=== PATIENT | female | born 1940 | race Caucasian/White ===

== ENCOUNTER 2022-05-30 20:11 | Inpatient (IN) | payer MEDICARE, SELFPAY ==
--- NOTE | ~2022-05-30 | XR_ITS ---
EXAMINATION: XR chest 1V portable Exam Date/Time: 05/30/2022 20:25 FUR PULLER HISTORY: chest pain, STEMI Comparison: None available. RESULT: Lines, tubes, and devices: None. Lungs and pleura: Diffuse reticular opacities, no focal consolidation. Scar/atelectasis in the left midlung. Cardiomediastinal silhouette: Stable. Other: No acute osseous or upper abdominal finding. IMPRESSION: Interstitial edema. Reviewed, dictated and finalized at location K. PULLER IMPRESSION: Interstitial edema.
--- NOTE | ~2022-05-30 | XR_ITS ---
Portable chest x-ray Comparison: 05/30/2022 Clinical History: CHF Findings: Probable mild central congestive change and minimal interstitial edema present. Cardiomed iastinal silhouette is stable. Bones and soft tissues are unremarkable. Impression: Probable mild central congestive change and minimal interstitial edema. Correlate for any possibility of chronic interstitial disease. Reviewed, dictated and finalized at [facility]. ARE MANAGER Impression: Probable mild central congestive change and minimal interstitial edema. Correla te for any possibility of chronic interstitial disease.
--- NOTE | 2022-05-30 20:11 | ECG_ITS ---
Measurements Intervals [place] Rate: 101 P: 74 VA: 197 QRS: 28 QRSD: 82 T: 63 QT: 339 QTc: 441 Interpretive Statements SINUS TACHYCARDIA POSSIBLE LEFT ATRIAL ENLARGEMENT LOW QRS VOLTAGE IN PRECORDIAL LEADS ANTEROLATERAL ST ELEVATION MYOCARDIAL INFARCT- ACUTE HIGH LATERAL ST ELEVATION MYOCARDIAL INFARCT- ACUTE BASELINE ARTIFACT- I, AVR, AVL, V1, V6 ABNORMAL ECG NO PREVIOUS ECG AVAILABLE FOR COMPARISON Electronically Signed On 05-31-2022 6:45:05 ASSURANCE AUDITOR by Zhao Denis D.O.
[2022-05-30 20:14] VITALS: BP 156/76; PULSE 99; RESP 18; TEMP 36.1; O2SAT 99
[2022-05-30] MEDS: ASPIRIN 81 MG CHEWABLE TABLET 324 MG PO (20:23)
[2022-05-30] MEDS: TICAGRELOR 90 MG TABLET 180 MG PO (20:31)
[2022-05-30 20:34] LABS: Basophils Percent Auto 0.5 % (0.2-1.2); Eosinophils Absolute Auto 0.1 K/mm3 (0-0.3); Eosinophils Percent Auto 1.2 % (0-4.4); Hematocrit 34.9 % (37.0-47.0); Hemoglobin 9.7 g/dL (12.0-15.0); Immature Granulocyte Absolute 0.02 K/mm3 (0.00-0.031); Immature Granulocyte Percent A 0.3 % (0-0.5); Lymphocytes Absolute Auto 1.48 K/mm3 (0.9-3.2); Lymphocytes Percent Auto 20.3 % (18.3-44.2); Mean Corpuscular HGB Conc 27.8 g/dl (32-36); Mean Corpuscular Hemoglobin 17.5 pg (26-34); Mean Corpuscular Volume 62.9 fl (80-100); Mean Platelet Volume 8.6 fl (7.4-10.4); Monocytes Absolute Auto 0.5 K/mm3 (0.1-0.6); Monocytes Percent Auto 7.4 % (2.6-8.5); Neutrophils Absolute Auto 5.1 K/mm3 (1.3-6.7); Neutrophils Percent Auto 70.3 % (45.5-73.1); Platelet Count Result 303 k/mm3 (150-375); Red Blood Count 5.55 M/mm3 (4.2-5.4); Red Cell Distribution Width 21.4 % (11.5-14.5); White Blood Count 7.3 K/mm3 (4.5-10.0)
[2022-05-30] MEDS: ONDANSETRON INJ 4 MG/2 ML VIAL IV PUSH (20:34)
--- NOTE | 2022-05-30 20:34 | ED.GENADULT ---
HPI - General Adult General Chief complaint: Chest Pain Stated complaint: chest pain Time Seen by Provider: 05/30/22 20:20 History of Present Illness HPI narrative: 82-year-old female history of COPD and coronary artery disease presenting the emergency department for evaluation of intense substernal chest pain has been ongoing for the last 1.5 hours. Patient states that she did have a cardiac cath approximately 4 years ago at a hospital in [place]. Patient is unsure of what hospital this was at. Patient reports she is not on any blood thinners. Patient is a somewhat difficult historian. Patient does describe a possible history of peripheral vascular disease and having multiple damaged arteries after her radiation therapy from her lung cancer. Patient reports that a prior physician was going to do a bypass on her groin but they were concerned she would not tolerate the anesthesia and ultimately this was not done. Patient also states that she has some blood vessels in her chest that are blocked but she is unsure of what vessels these are or if they were coronary arteries. Patient does have history of diabetes, hypertension, hypothyroid Related Data Allergies Allergy/AdvReac Type Severity Reaction Status Date / Time No Known Allergies Allergy Verified 05/30/22 20:13 Review of Systems Review of Systems: CONSTITUTIONAL: Denies fever, chills, or sweats. EYES: Denies visual changes, redness, or discharge. ENT: Denies rhinorrhea, congestion, sore throat, or otalgia. CARDIOVASCULAR: See HPI RESPIRATORY: Denies cough or dyspnea. GASTROINTESTINAL: Denies abdominal pain, nausea, vomiting, or diarrhea. GENITOURINARY: Denies dysuria or hematuria. SKIN: Denies rash or itching. MUSCULOSKELETAL: Denies back pain, joint pain, or myalgia. NEUROLOGIC: Denies headache, numbness, or weakness. Exam Narrative: APPEARANCE: Ill-appearing HEAD: normocephalic, atraumatic. EYES: PERRLA/EOMI, conjunctivae clear. NOSE: Normal no drainage NECK: Supple. No adenopathy, no masses. RESPIRATORY: Airway patent, respirations nonlabored. Clear to auscultation bilaterally, no rales, rhonchi, wheezing. CARDIOVASCULAR: Tachycardia ABDOMINAL: Soft, nontender, nondistended, normal bowel sounds MUSCULOSKELETAL: Moves all extremities. Strength/ROM intact, No edema, No calf tenderness. NEURO: Alert. Cranial nerves II through XII intact. Grossly intact SKIN: Warm, dry. Normal Color Course Course Emergency Course: Patient's EKG was concerning for STEMI. Shortly after arrival to the emergency department cardiology was paged and they agreed with this being a STEMI. Patient was given aspirin, Brilinta, heparin and metoprolol. Patient was also provided morphine for pain control. Patient denies any prior history of CABG. Patient states on her last catheter that they had possible difficulty with the cath. But patient was unable to provide any other additional information. Vital Signs Vital signs: Vital Signs Temperature 96.9 F L 05/30/22 20:14 Pulse Rate 99 05/30/22 20:14 Respiratory Rate 18 05/30/22 20:14 Blood Pressure 156/76 H 05/30/22 20:14 Pulse Oximetry 99 05/30/22 20:14 Oxygen Delivery Room Air 05/30/22 20:14 Temperature 96.9 F L 05/30/22 20:14 Pulse Rate 104 H 05/30/22 20:44 Respiratory Rate 22 H 05/30/22 20:37 Blood Pressure 150/77 H 05/30/22 20:37 Pulse Oximetry 99 05/30/22 20:37 Oxygen Delivery Room Air 05/30/22 20:40 Medical Decision Making Vital Signs Vital Signs: Vital Signs Temperature 96.9 F L 05/30/22 20:14 Pulse Rate 99 05/30/22 20:14 Respiratory Rate 18 05/30/22 20:14 Blood Pressure 156/76 H 05/30/22 20:14 Pulse Oximetry 99 05/30/22 20:14 Oxygen Delivery Room Air 05/30/22 20:14 Temperature 96.9 F L 05/30/22 20:14 Pulse Rate 104 H 05/30/22 20:44 Respiratory Rate 22 H 05/30/22 20:37 Blood Pressure 150/77 H 05/30/22 20:37 Pulse Oximetry 99 05/30/22 20:37 Oxygen
[2022-05-30 20:37] VITALS: BP 150/77; PULSE 99; RESP 22; O2SAT 99
[2022-05-30 20:40] VITALS: PULSE 101
[2022-05-30] MEDS: SODIUM CHLORIDE 0.9% IV 1,000 ML 999 ML (20:42)
[2022-05-30] MEDS: HEPARIN SODIUM 5,000 UNITS/ML VIAL 3500 UNITS IV PUSH (20:42)
[2022-05-30 20:44] VITALS: PULSE 104
[2022-05-30] MEDS: METOPROLOL TARTRATE INJ 5 MG/5 ML VIAL IV PUSH (20:44)
[2022-05-30 20:45] LABS: Alanine Aminotransferase 16 U/L (6-35); Albumin Level 4.8 g/dL (3.5-5.1); Alkaline Phosphatase 96 U/L (38-126); Anion Gap 13 mmol/L (8-16); Aspartate Amino Transferase 27 U/L (14-36); Bilirubin,Total 0.3 mg/dL (0.2-1.3); Blood Urea Nitrogen 12 mg/dL (7-17); Carbon Dioxide 23 mmol/L (22-30); Chloride 96 mmol/L (98-107); Estimated CRCL calculation 81 ml/min; Estimated Glomerular Filt Rate > 60; Glucose 218 mg/dL (65-110); Lipase 36 U/L (23-300); Potassium 3.4 mmol/L (3.4-5.0); Sodium 132 mmol/L (137-145)
[2022-05-30] MEDS: MORPHINE SULFATE (*CRX) 2 MG/ML INJ IV PUSH (20:46)
[2022-05-30 20:47] LABS: INR 1.1
[2022-05-30 20:48] LABS: Partial Thromboplastin Time 25.9 SECONDS (22.3-36.8)
[2022-05-30 20:55] LABS: Troponin I 0.026 ng/mL (0.000-0.034)
[2022-05-30 20:57] LABS: Cholesterol 109 mg/dL (0-200); HDL Direct 44 mg/dL; Triglycerides 94 mg/dL (<150)
[2022-05-30 21:07] LABS: LDL Cholesterol Direct 44 mg/dL
[2022-05-30 21:12] LABS: Anisocytosis 2+ (NORMAL); Hypochromasia 1+ (NORMAL); Platelet Estimate Adequate (Adequate); Schistocytes None Seen (NORMAL)
[2022-05-30 21:13] LABS: NT Pro B Type Natriuretic Pept 166 pg/mL (5-100)
[2022-05-30 21:42] LABS: Influenza A QL RT-PCR Negative (Negative); Influenza B QL RT-PCR Negative (Negative); RSV RNA, RT-PCR Negative (Negative); SARS-CoV-2 RNA PCR Negative
[2022-05-30 22:36] VITALS: BP 138/68; PULSE 94; RESP 20; TEMP 36.6; O2SAT 92
--- NOTE | 2022-05-30 22:41 | PM.IMHP ---
H&P: HPI History of Present Illness Date/Time: 05/30/22 22:41 Chief Complaint: chest pain Narrative: this is an 82-year-old woman unknown to me and appears to be unknown to physicians at [facility] was brought here by her family because of chest pain. Patient upon arrival in the emergency room was found by EKG to have evidence of acute anterolateral myocardial infarction and I was activated for STEMI protocol. Patient is having [id number] chest pain upon arrival in the cardiac catheterization lab. She is a very poor historian but obviously has a history of significant coronary and peripheral vascular disease. She tells me that she has a manager development that manages her case elsewhere who several years ago referred her for coronary bypass at another hospital for which she was turned down by the surgeon. Following that it sounds like she has been treated medically. He does not describe any recent serious coronary problems. With this minimal background information she is being brought for emergency angiography. Chest pain symptoms began a couple of days ago intermittently and then began consistently tonight at about 5 per 5:30 p.m.. She describes this as a moderate to severe retrosternal heaviness. Review of Systems Review of Systems: ROS unobtainable: Yes unobtainable due to medical condition Meds Home Medications and Allergies Allergies Allergy/AdvReac Type Severity Reaction Status Date / Time No Known Allergies Allergy Verified 05/30/22 20:13 Vital Signs Vital Signs - 24 hr 05/30/22 20:14 05/30/22 20:37 05/30/22 20:44 Temperature 36.1 C L Pulse Rate 99 99 104 H Respiratory Rate 18 22 H Blood Pressure 156/76 H 150/77 H Pulse Oximetry 99 99 Oxygen Delivery Room Air Room Air 05/30/22 20:40 05/30/22 20:40 Temperature Pulse Rate 101 H Respiratory Rate Blood Pressure Pulse Oximetry Oxygen Delivery Room Air Exam Const: General: uncomfortable Other: Well-developed well-nourished white female appears her stated age in moderate distress with chest pain HENMT: Mouth: Yes moist mucous membranes Eyes: Sclera: sclerae normal Neck: Neck: supple Other: carotid pulses are intact bilateral Resp: Effort & Inspection: normal respiratory effort Auscultation: clear to auscultation bilaterally Cardio: Rate: regular rate Rhythm: regular rhythm Other: soft 2/6 systolic crescendo decrescendo murmur does not radiate from the left sternal border no diastolic murmur no gallop GI: GI Palp: Yes Soft to palpation Auscultation: normal bowel sounds Skin: General skin exam: normal color Neuro: Other: alert and oriented x3 Extrem: Other: no edema, pulses are not palpable in the lower extremity H&P: Results Labs Labs: Short CBC 05/30/22 Range/Units 20:22 WBC 7.3 (4.5-10.0) K/mm3 Hgb 9.7 L (12.0-15.0) g/dL Hct 34.9 L (37.0-47.0) % Plt Count 303 (150-375) k/mm3 BMP 05/30/22 20:22 Sodium 132 L Potassium 3.4 Chloride 96 L Carbon Dioxide 23 BUN 12 Creatinine 0.40 L Glucose 218 H Calcium 9.0 Cardiac Enzymes 05/30/22 Range/Units 20:22 Troponin I 0.026 (0.000-0.034) ng/mL Liver Function 05/30/22 Range/Units 20:22 Total Bilirubin 0.3 (0.2-1.3) mg/dL AST 27 (14-36) U/L ALT 16 (6-35) U/L Alkaline Phosphatase 96 (38-126) U/L Albumin 4.8 (3.5-5.1) g/dL Assessment and Plan Assessment and plan (1) ST elevation [place] (STEMI): Code(s): I21.3 - ST elevation (STEMI) myocardial infarction of unspecified site Status: Acute Plan 82-year-old woman who apparently has significant coronary and peripheral vascular disease presenting with chest pain stuttering for several days consistent for several hours and comes to [facility] were none of her medical care is generally delivered. ECG demonstrates evidence of acute anterior wall infarction in this setting and emergency angiogram is frankie
--- NOTE | 2022-05-30 22:46 | WPDCARDPROC ---
Cardiac Cath Procedure Note Date of procedure:: 05/30/22 Performing physician:: Elmo Cortes MD Indication:: emergency coronary angiography emergency attempted PCI Brief clinical history:: this is an 82-year-old woman with a apparent history of significant coronary and peripheral vascular disease receiving her care elsewhere. She presents to this hospital with intermittent chest pain for several days continuous this evening with anterior wall VT by ECG. Procedure Procedure performed:: Coronary angiogram attempted PCI( unsuccessful) Sedation/Medication given:: no sedation administered in the laborer brush clearing Access site:: attempted right femoral artery attempted right radial artery right brachial artery Estimated blood loss:: 100 cc Procedure note:: patient was brought to the cardiac catheterization lab in the emergency setting described above. The femoral triangles were prepared and draped in the usual fashion. Anesthesia was provided in the right using 1% lidocaine. There was no palpable right femoral pulse. I could see fluoroscopic Solange the calcification in the common femoral artery. The artery was then punctured and a guidewire was placed up to the bifurcation of the aorta which then traversed down the left iliac artery. I placed a 6 Cambodian vascular sheath in the artery and then used a right coronary diagnostic catheter advanced up to the iliac artery and attempted to steer a Arielle wire into the abdominal aorta. This was unsuccessful. Following that through the right coronary catheter I injected angiogram identifying the distal abdominal aorta is totally occluded. The lower extremities receive only collateral filling. Obviously there would be no access to the central aorta from the groin. I then had the right radial artery prepped and tried multiple times unsuccessfully to access the radial artery. Had the right antecubital fossa prepped and the brachial artery was punctured guidewire was placed into the central aorta and a 6 Cambodian vascular sheath was placed. She then received additional 3000 units of heparin. I used a 5 Cambodian JR4 catheter to engage and inject the right coronary artery in orthogonal projections. Then a 5 Cambodian FL4 catheter was used to engage and inject the left coronary artery in multiple projections. The cineangiograms were then reviewed. PCI of the mid LAD was then recommended and attempted as detailed below. Prior to PCI she received bolus and infusion of Angiomax for systemic anticoagulation. We then engaged the left coronary artery with a 6 Cambodian FL4 guiding catheter. PCI was attempted as detailed below. This was not successful and the procedure was then abandoned. The femoral and brachial artery sheath was sutured into position and the patient will be taken to the ICU for post VT recovery. The procedure was obviously difficult and challenging as vascular access took a long time and ultimately was performed successfully and without complication. Findings:: Central aortic pressure was 126/72. The left ventricle was not entered during this procedure the left main coronary artery is a large caliber vessel there is a eccentric plaque in the left main of about 40-50% stenosis. Does not appear to be flow-limiting. The left anterior descending is a calcified moderate caliber artery extending down to the apex. There is a stenosis in the LAD after the major diagonal branch about 70-80% following this there is a long stenosis of 95-99% in the midportion of the LAD which angiographically appears to be the culprit lesion. There it is despite this LESLIE 3 flow in the LAD at the time of the angiogram. The LAD distal to this is mildly disease. Circumflex is a large caliber artery the 1st obtuse marginal branch is small and free of significant disease the 2nd obtuse marginal is the major obtuse marginal and has a proximal 70-80% stenosis. There is an AV groove portion in the posterior portion of
[2022-05-30 23:20] VITALS: BMI 23.6
[2022-05-30 23:34] LABS: Cholesterol 100 mg/dL (0-200); HDL Direct 45 mg/dL; Triglycerides 56 mg/dL (<150)
[2022-05-30 23:45] LABS: LDL Cholesterol Direct 40 mg/dL
[2022-05-31] VITALS (91 sets, daily range): BP systolic 68–128; BP diastolic 32–96; PULSE 69–117; RESP 12–33; TEMP 36.1–37.2; O2SAT 89–100
--- NOTE | 2022-05-31 | ECHO_ITS ---
Patient Info Name: Anai Whaley Age: 82 years : 1940 Gender: Female Ht: 65 in Wt: 133 lbs BSA: 1.67 m2 HR: 97 bpm BP: 114 / 59 mmHg Heart Rhythm: Sinus Rhythm Technical Quality: Fair Exam Date: 05/31/2022 8:44 AM Exam Location: [facility] Pulmonary Patient Status: Inpatient Admit Date: 05/30/2022 Staff Ordering Physician: Elmo Cortes MD Bed Laborer: Marni Tapia RDCS Attending Provider: Elmo Cortes MD Referring Physician: Sophia BRENNAN; Exam Type: CA echo doppler color flow Study Info Indications - coronary artery disease acute IN Complete two-dimensional, color flow and Doppler transthoracic echocardiogram is performed. Summary 1. Complete two-dimensional, color flow and Doppler transthoracic echocardiogram is performed. 2. Left ventricular chamber dimension is normal. 3. Left ventricular systolic function is moderately reduced, estimated at 30-35%. 4. The mid inferolateral and mid anteroseptum are hypokinetic. 5. The apical lateral, apical septum, and apical cap are akinetic. 6. Right ventricular systolic function is normal. 7. There is moderate aortic valve calcification. 8. There is mild aortic valve regurgitation. 9. There is moderate mitral valve regurgitation. 10. There is mild tricuspid valve regurgitation. Left Ventricle The mid inferolateral and mid anteroseptum are hypokinetic. The apical lateral, apical septum, and apical cap are akinetic. Left ventricular chamber dimension is normal. Left ventricular systolic function is moderately reduced, estimated at 30-35%. The left ventricular diastolic function is grade I diastolic dysfunction. Right Ventricle Right ventricular chamber dimension is normal. Right ventricular systolic function is normal. Left Atria Left atrial chamber dimension is normal. Right Atria Right atrial chamber dimension is normal. Atrial Septum Intact interatrial septum visualized by color flow imaging. Aortic Valve The aortic valve is not well visualized. There is no aortic valve stenosis. There is mild aortic valve regurgitation. There is moderate aortic valve calcification. Pulmonic Valve The pulmonic valve is not well visualized. Mitral Valve The mitral valve has thickened leaflets. There is moderate mitral valve regurgitation. Tricuspid Valve There is mild tricuspid valve regurgitation. Pericardium/Pleural There is trivial pericardial effusion. Inferior Vena Cava Normal inferior vena cava with <50% collapse upon inspiration consistent with elevated right atrial pressure. Aorta The aortic root size at the sinus of Valsalva is normal. Left Ventricular Outflow Tract Name Value Normal LVOT 2D LVOT Diameter 2.0 cm LVOT Doppler LVOT Peak Gradient 3 mmHg LVOT Mean Gradient 1 mmHg LVOT VTI 17 cm LVOT VTI/AV VTI Ratio 0.6 LVOT Stroke Volume 55 ml LVOT CO 4.4 l/min LVOT CI
--- NOTE | 2022-05-31 | ADMGEN ---
This patient, Anai Whaley, was admitted to Intensive Care Unit-3. Patient/family oriented to hospital policies and general routines including ID bracelet, bed and alarms, visiting hours, pain management, procedures, bathroom and other care routines, personal items, smoking policy, room service/diet, and visiting hours. Information on how to activate the Rapid Response Team has been discussed. Patient/Family are encouraged to report perceived risks to care and to ask questions if they do not understand what they are told or what they should do.
[2022-05-31] MEDS: HYDROcodone/acetaminophen (*CRX) 5-325 MG TABLET 1 TAB PO ×2 (00:16→15:37)
[2022-05-31] MEDS: SODIUM CHLORIDE 0.9% IV 1,000 ML 125 ML IV CONT (02:00)
[2022-05-31] MEDS: MORPHINE SULFATE (*CRX) 2 MG/ML INJ IV PUSH ×2 (03:50→08:15)
--- NOTE | 2022-05-31 05:11 | ECG_ITS ---
Measurements Intervals [place] Rate: 92 P: 51 [place]: 216 QRS: 91 QRSD: 78 T: 87 QT: 370 QTc: 459 Interpretive Statements SINUS RHYTHM WITH FIRST DEGREE AV BLOCK LOW QRS VOLTAGE IN LIMB LEADS ANTEROSEPTAL INFARCT, AGE INDETERMINATE BASELINE ARTIFACT- I, III, AVR, AVL, V1-V2 ABNORMAL ECG COMPARED TO ECG 05/30/2022 20:16:15 SINUS RHYTHM NOW PRESENT FIRST DEGREE AV BLOCK NOW PRESENT MYOCARDIAL INFARCT FINDING NOW PRESENT Electronically Signed On 05-31-2022 11:46:26 ECONOMIC ADVISER by Zhao Denis D.O.
[2022-05-31 07:42] LABS: Basophils Percent Auto 0.4 % (0.2-1.2); Eosinophils Percent Auto 0.3 % (0-4.4); Hematocrit 30.4 % (37.0-47.0); Hemoglobin 8.4 g/dL (12.0-15.0); Immature Granulocyte Absolute 0.09 K/mm3 (0.00-0.031); Immature Granulocyte Percent A 1.2 % (0-0.5); Lymphocytes Absolute Auto 1.17 K/mm3 (0.9-3.2); Mean Corpuscular HGB Conc 27.6 g/dl (32-36); Mean Corpuscular Volume 61.7 fl (80-100); Mean Platelet Volume 9.2 fl (7.4-10.4); Monocytes Absolute Auto 0.6 K/mm3 (0.1-0.6); Monocytes Percent Auto 7.6 % (2.6-8.5); Neutrophils Absolute Auto 5.9 K/mm3 (1.3-6.7); Neutrophils Percent Auto 75.5 % (45.5-73.1); Platelet Count Result 263 k/mm3 (150-375); Red Blood Count 4.93 M/mm3 (4.2-5.4); Red Cell Distribution Width 20.8 % (11.5-14.5); White Blood Count 7.8 K/mm3 (4.5-10.0)
[2022-05-31 07:49] LABS: Alanine Aminotransferase 22 U/L (6-35); Alkaline Phosphatase 76 U/L (38-126); Anion Gap 5 mmol/L (8-16); Aspartate Amino Transferase 181 U/L (14-36); Bilirubin,Total 0.3 mg/dL (0.2-1.3); Blood Urea Nitrogen 11 mg/dL (7-17); Calcium 8.7 mg/dL (8.4-10.2); Carbon Dioxide 28 mmol/L (22-30); Chloride 95 mmol/L (98-107); Estimated CRCL calculation 81 ml/min; Estimated Glomerular Filt Rate > 60; Glucose 145 mg/dL (65-110); Magnesium 1.9 mg/dL (1.6-2.3); Phosphorus 4.1 mg/dL (2.5-4.5); Potassium 4.4 mmol/L (3.4-5.0); Sodium 128 mmol/L (137-145)
[2022-05-31 08:06] LABS: Anisocytosis 1+ (NORMAL); Hypochromasia 1+ (NORMAL); Ovalocytes 2+ (NORMAL); Platelet Estimate Adequate (Adequate); Poikilocytosis 1+ (NORMAL)
[2022-05-31 08:07] LABS: Schistocytes None Seen (NORMAL)
[2022-05-31] MEDS: ASPIRIN 81 MG CHEWABLE TABLET PO (08:17)
[2022-05-31] MEDS: carvediloL 6.25 MG TABLET PO (08:19)
[2022-05-31] MEDS: ROSUVASTATIN 10 MG TABLET 20 MG PO (08:19)
[2022-05-31] MEDS: LOSARTAN POTASSIUM 25 MG TABLET PO (08:19)
[2022-05-31] MEDS: TICAGRELOR 90 MG TABLET PO (08:19)
--- NOTE | 2022-05-31 09:57 | ECG_ITS ---
Measurements Intervals [place] Rate: 89 P: 61 [place]: 198 QRS: 102 QRSD: 85 T: 89 QT: 385 QTc: 469 Interpretive Statements SINUS RHYTHM RIGHT AXIS DEVIATION ANTEROSEPTAL MYOCARDIAL INFARCTION , PROBABLY RECENT BASELINE ARTIFACT- I, II, III, AVR, AVF ABNORMAL ECG COMPARED TO ECG 05/31/2022 01:48:30 NO SIGNIFICANT CHANGES Electronically Signed On 05-31-2022 11:52:42 YOUTH SERVICES SPECIALIST by Zhao Denis D.O.
--- NOTE | 2022-05-31 09:57 | WPDCNINT ---
Assessment and Plan Assessment and plan (1) ST elevation [place] (STEMI): Code(s): I21.3 - ST elevation (STEMI) myocardial infarction of unspecified site Status: Acute Assessment and Plan: Patient with presented with chest pain, shortness of breath, EKG showed anterolateral ST-elevation myocardial infarction. Patient was taken to cardiac oil field laborer, femoral and radial access were unsuccessful, patient had a angiogram done through the brachial -found to have 99% stenosis of mid LAD which could not be opened with balloon was 10 due to heavy calcification. -discussed with cardiology who thinks that it may be amenable to rotational atherectomy. They will be talking to her usual manager safe Dr. Brar. Who suggested she gets transferred to [facility] and his care -echocardiogram has been ordered (2) Acute combined systolic and diastolic congestive heart failure: Code(s): I50.41 - Acute combined systolic (congestive) and diastolic (congestive) heart failure Status: Acute Assessment and Plan: Patient has a history of systolic and diastolic dysfunction due to acute [place]. -patient required diuresis if blood pressures permit (3) Peripheral vascular disease: Code(s): I73.9 - Peripheral vascular disease, unspecified Status: Acute Assessment and Plan: Occluded distal aorta, patient will require vascular surgery evaluation (4) COPD (chronic obstructive pulmonary disease): Code(s): J44.9 - Chronic obstructive pulmonary disease, unspecified Status: Acute Assessment and Plan: Continue bronchodilators (5) Diabetes: Code(s): E11.9 - Type 2 diabetes mellitus without complications Status: Acute Assessment and Plan: Accu-Cheks and sliding scale insulin along with Lantus (6) Hypothyroidism: Code(s): E03.9 - Hypothyroidism, unspecified Status: Acute Assessment and Plan: Continue levothyroxine Plan DVT prophylaxis: Status post angiogram Stress ulcer prophylaxis: Not indicated Nutrition: Heart healthy diet Code Status: Full code Critical Care Time Spent: 48 minutes Due to a high probability of clinically significant, life threatening deterioration, the patient required my highest level of preparedness to intervene emergently and I personally spent this critical care time directly and personally managing the patient. This critical care time included obtaining a history; examining the patient; pulse oximetry; ordering and review of studies; arranging urgent treatment with development of a management plan; evaluation of patient's response to treatment; frequent reassessment; and discussions with other providers. It was exclusive of separately billable procedures and treating other patients and teaching time. Please see Assessment and Plan section and the rest of the note for further information on patient assessment and treatment This dictation may have been done utilizing a voice recognition system. Attempts have been made to correct errors. However, there may be uncorrected grammatical, spelling, and recognitions errors present. Specimen Boss Consult Note Consult date: 05/31/22 Reason for consult: Chest pain, STEMI HPI: Anai Whaley is a 82 year old female with past medical history of COPD, coronary artery disease, peripheral vascular disease, essential hypertension, hypothyroidism, diabetes presented the ED on 05/30/2022 in the night full of chest pain which started a few days prior to coming to the hospital, she states that her chest pain was intermittent and she thought it is probably gas pains. On the day of admission in the evening the pain was continuous and would radiate to her left arm. She also complained of shortness of breath. Denies any she nausea vomiting. EKG in the ER showed evidence of acute anterolateral myocardial infarction. Patient was taken for angiogram and PCI. Was found to have a 99% stenosis of the mid LAD which
--- NOTE | 2022-05-31 10:14 | PM.PNCARD ---
Progress Note: A&P Assessment and Plan (1) ST elevation FL (STEMI): Code(s): I21.3 - ST elevation (STEMI) myocardial infarction of unspecified site Status: Acute Assessment and Plan: Admitted with an anterior STEMI, troponins up to 26, complicated by CHF. Has a 99% stenosis of the mid Left anterior descending which could not be opened with balloon/ stent due to heavy calcification. However has LESLIE grade 3 flow. Has done well overnight on aspirin, Brilinta, carvedilol etc.. the lesion may be amenable to rotational atherectomy,which is not performed at this hospital. Called her usual senior clinical project manager, Dr. Brar, to review case, consider transfer and possible rotational atherectomy at another institution. he suggested transfer to [facility] under his service for further evaluation. Check EKG echo ordered (2) Acute combined systolic and diastolic congestive heart failure: Code(s): I50.41 - Acute combined systolic (congestive) and diastolic (congestive) heart failure Status: Acute Assessment and Plan: Admitted with acute CHF, probably systolic and diastolic due to the acute FL. chest x-ray this morning, assess need for diuretics (3) Peripheral vascular disease: Code(s): I73.9 - Peripheral vascular disease, unspecified Status: Acute Assessment and Plan: Occluded distal aorta. (4) COPD (chronic obstructive pulmonary disease): Code(s): J44.9 - Chronic obstructive pulmonary disease, unspecified Status: Acute Assessment and Plan: Chronic COPD, not requiring O2. Subjective Date/time seen: 82-year-old female previously followed by Dr. Brar of [facility]. Admitted with an anterior STEMI. Cardiac catheterization by Dr. Cortes last night revealed an occluded distal aorta. Catheterization was done via the right brachial approach. She had a subtotal mid Left anterior descending lesion which could not be open with angioplasty or stenting due to heavy calcification. She had LESLIE grade 3 flow through the Left anterior descending. She also has a 70-80% stenosis in the obtuse marginal. 05/31/22 10:14 The patient did well overnight. No further angina. Chronic shortness of breath but nothing worse than usual, due to her history of COPD, lung cancer and radiation therapy. Main concern was severe back pain which is chronic but exacerbated by her bed rest. No pain in her hands or feet. No bleeding problems. Telemetry shows sinus rhythm with some nonsustained ventricular tachycardia up to approximately 10 beats through the night. Review of Systems Review of Systems: No chest pain, chronic shortness of breath but not worse than usual, mild chronic cough, no abdominal pain. Back pain. No pain in the legs hands or feet but says her hands and feet are always cold. Feels weak which is another chronic problem. Concerned that she was told in the past but nothing could be done for her circulation ( lower extremities or CABG? ) and that she cannot be put under general anesthesia due to her COPD. Exam Narrative: Frail elderly lady sitting at the bedside drinking her coffee, in no distress Const: General: cooperative and comfortable; No confusion Orientation/consciousness: oriented to person, patient oriented x3 and No confusion HENMT: Mouth: Yes moist mucous membranes Eyes: General: appearance normal, both eyes and all related structures Neck: Neck: supple Resp: Effort & Inspection: normal respiratory effort Auscultation: rhonchi and diminished lung sounds Other: few scattered rhonchi Cardio: Rate: regular rate Rhythm: regular rhythm Heart sounds: no murmurs GI: Inspection: normal to inspection GI Palp: No abdominal tenderness Skin: General skin exam: normal color and no rashes or lesions noted Other: Some ecchymosis over the right forearm Neuro: General: oriented to person, patient
[2022-05-31] MEDS: INSULIN GLARGINE (*BKC) 100 UNITS/ML 20 UNITS SUB-Q (11:43)
[2022-05-31 11:47] LABS: Glucose Point of Care 152 mg/dl (65-105)
[2022-05-31] MEDS: hetaSTARCH 6%/NACL 500 ML 250 ML IV CONT (14:13)
[2022-05-31 15:05] LABS: Glucose Point of Care 129 mg/dl (65-105)
--- NOTE | 2022-06-01 19:31 | PM.TDS ---
Transfer Discharge Sum: Prov Provider Date of admission: 05/30/22 20:27 Primary care physician: PHYSICIAN NOT ON STAFF Admitting clinician: Elmo Cortes MD Consults: 05/30/22 Consult to Physician Routine Comment: Consulting Provider: Elmo Cortes Reason for consultation: STEMI Has provider been notified: Yes Attending physician on discharge: Alaina Waller Discharging clinician: Alaina Waller Anticipated date of transfer: 05/31/22 Receiving physician/facility: Hospitalist at [facility] and Dr. Brar DS: Admitting Diagnosis Discharge Date 05/31/22 Admitting Diagnosis Anterior STEMI DS: Discharge Diagnosis Discharge Diagnosis Plan Acute anterior [place], 99% mid Left anterior descending stenosis which could not be intervened upon. Patient is being transferred to [facility] for consideration of rotational arthrectomy under the care of her usual coastal and estuary specialist, Dr. Brar. Acute systolic and diastolic CHF: EF 30-35%. She had some transient heart failure, improved after 1 dose of furosemide 20 mg IV push. Vascular disease: She has diffuse vascular disease, with an occluded distal aorta, but adequate flow to her lower extremities. Tobacco use: Smoking cessation was encouraged COPD: Has not required chronic O2. Noncardiac chest pain: Patient suffered a fall at home, hurting her right chest with musculoskeletal chest pain. No evidence of rib fracture by routine chest x-ray. Transfer Discharge Sum: Med Medications Active and Home Medications: Home Medications albuterol sulfate 90 mcg/actuation aerosol inhaler 2 puff inhalation Q4H PRN Shortness Of Breath Or Wheezing 05/30/22 [History Confirmed 05/30/22] amlodipine 5 mg tablet 5 mg PO DAILY 05/30/22 [History Confirmed 05/30/22] fluticasone furoate 100 mcg-vilanterol 25 mcg/dose inhalation powder (Breo Ellipta) 1 inh inhalation DAILY 05/30/22 [History Confirmed 05/30/22] insulin glargine 100 unit/mL subcutaneous solution (Lantus U-100 Insulin) 40 unit subcut DAILY 05/30/22 [History Confirmed 05/30/22] levothyroxine 88 mcg tablet (Synthroid) 88 mcg PO DAILY 05/30/22 [History Confirmed 05/30/22] liothyronine 5 mcg tablet 5 mcg PO DAILY 05/30/22 [History Confirmed 05/30/22] metformin 500 mg tablet,extended release 24 hr 500 mg PO TID 05/30/22 [History Confirmed 05/30/22] risankizumab-rzaa 150 mg/mL subcutaneous pen injector (Skyrizi) See Rx Instructions .Route .COMPLEX 05/30/22 [History Confirmed 05/30/22] Transfer Discharge Sum: Hosp Hospital Course Hospital course: Anai Whaley is a 82 year old female previously followed by Dr. Brar of [facility].? Admitted with an anterior STEMI.? Cardiac catheterization by Dr. Cortes last night revealed an occluded distal aorta.? Catheterization was done via the right brachial approach.? (he found that the distal aorta was completely occluded, and also could not advance to the right radial artery. ) She had a subtotal mid Left anterior descending lesion which could not be open with angioplasty or stenting due to heavy calcification.? However, she had LESLIE grade 3 flow through the Left anterior descending.? She also has a 70-80% stenosis in the obtuse marginal.? The troponins went up to 26 and she had some mild systolic and diastolic heart failure. EF showed ejection fraction 30-35%. However no further anginal pain. Dr. Cortes felt that the Left anterior descending lesion may be amenable to rotational atherectomy which is not performed in this hospital. Discussed with her usual coastal and estuary specialist, Dr. Brar, and he agreed transfer the patient to [facility] under his service for further evaluation. Time Spent with Patient Time attestation: Total time spent providing and/or coordinating transfer services: Exam Const: General: cooperative; No healthy appearing (Thin and frail-appearing), comfortable (Right lateral chest wall disco
== END 2022-05-31 15:00 | disposition short-term general hospital (02) | DRG 282 ==
LOC: ANHED 20:34 → ANHICU 20:36
PROVIDERS: Internal Medicine; Admitting Provider Specialist; Emergency Provider Emergency Medicine; Visit Provider Internal Medicine Cardiovascular Disease
PROC: B211YZZ Fluoroscopy of Multiple Coronary Arteries using Other Contrast (ICD-10-PCS; CPT 93454; principal; 2022-05-30 21:00)
PROC: B211YZZ Fluoroscopy of Multiple Coronary Arteries using Other Contrast (ICD-10-PCS; CPT 92920; 2022-05-30 21:00)
DX: I21.09 ST elevation (STEMI) myocardial infarction involving other coronary artery of anterior wall (principal); I77.9 Disorder of arteries and arterioles, unspecified; J44.9 Chronic obstructive pulmonary disease, unspecified; E11.51 Type 2 diabetes mellitus with diabetic peripheral angiopathy without gangrene; E03.9 Hypothyroidism, unspecified; Z20.822 Contact with and (suspected) exposure to COVID-19; F17.210 Nicotine dependence, cigarettes, uncomplicated; Z79.51 Long term (current) use of inhaled steroids; Z79.4 Long term (current) use of insulin; Z79.84 Long term (current) use of oral hypoglycemic drugs; Z79.899 Other long term (current) drug therapy
CPT/HCPCS: 36415; 71045; 80053; 80061; 82948; 83036; 83690; 83735; 83880; 84100; 84484; 85025; 85055; 85610; 85730; 86850; 86900; 86901; 87637; 92920; 93005; 93306; 93454; 99285; A9270; C1725; C1769; C1887; C1894; J0583; J1644; J1815; J2270; J2405; J7030; J7040

== ENCOUNTER 2023-11-16 13:56 | Outpatient (CLI) | payer MEDICARE, SELFPAY ==
[2023-11-16 15:10] LABS: Hematocrit 33.9 % (37.0-47.0); Hemoglobin 9.5 g/dL (12.0-15.0); Mean Corpuscular Hemoglobin 18.7 pg (26-34); Mean Corpuscular Volume 66.6 fl (80-100); Mean Platelet Volume 9.8 fl (7.4-10.4); Platelet Count Result 271 k/mm3 (150-375); Red Blood Count 5.09 M/mm3 (4.2-5.4); Red Cell Distribution Width 20.8 % (11.5-14.5)
[2023-11-16 15:51] LABS: Alanine Aminotransferase 13 U/L (6-35); Albumin Level 4.5 g/dL (3.5-5.1); Alkaline Phosphatase 86 U/L (38-126); Anion Gap 13 mmol/L (4-12); Aspartate Amino Transferase 22 U/L (14-36); Bilirubin,Total 0.4 mg/dL (0.2-1.3); Blood Urea Nitrogen 15 mg/dL (7-17); Calcium 9.3 mg/dL (8.4-10.2); Carbon Dioxide 23 mmol/L (22-30); Chloride 102 mmol/L (98-107); Estimated Glomerular Filt Rate > 60; Glucose 125 mg/dL (65-110); Potassium 4.3 mmol/L (3.4-5.0); Sodium 138 mmol/L (137-145)
[2023-11-16 16:02] LABS: Iron 19 ug/dL (37-170)
[2023-11-16 16:24] LABS: Percent Iron Saturation 5 % (20-50)
[2023-11-16 16:48] LABS: Thyroid Stimulating Hormone Reflex < 0.015 uIU/mL (0.465-4.68)
[2023-11-16 17:24] LABS: Folic Acid 18.2 ng/mL (2.76->20)
[2023-11-17 05:34] LABS: Free T4 Free Thyroxine Reflex 1.57 ng/dL (0.78-2.19)
[2023-11-17 06:17] LABS: Total Triiodothyronine (T3) 1.55 NG/ML (0.97-1.69)
[2023-11-20 13:18] LABS: Immunoglobulin A 344 mg/dL (70-320); TTG IGA AB <1.0 U/mL
== END 2023-11-16 13:57 | disposition home or self-care (01) ==
PROVIDERS: PCP Emergency Medicine; Visit Provider Nurse Practitioner
DX: R07.9 Chest pain, unspecified (principal); D50.9 Iron deficiency anemia, unspecified; I50.41 Acute combined systolic (congestive) and diastolic (congestive) heart failure
CPT/HCPCS: 36415; 80053; 82607; 82746; 82784; 83540; 83550; 84439; 84443; 84480; 85027; 86364